=== PATIENT | male | born 1970 | race Caucasian/White ===

== ENCOUNTER 2019-08-30 09:19 | Emergency (ER) | payer SELFPAY ==
[2019-08-30 10:15] LABS: APPEARANCE,URINE CLEAR; BILIRUBIN,URINE NEGATIVE (NEGATIVE); COLOR,URINE YELLOW; GLUCOSE, URINE NEGATIVE (NEGATIVE); KETONES,URINE NEGATIVE (NEGATIVE); LEUKOCYTE ESTERASE,URINE NEGATIVE (NEGATIVE); NITRITE,URINE NEGATIVE (NEGATIVE); PROTEIN,URINE NEGATIVE (NEGATIVE); URINE SPECIFIC GRAVITY 1.013; UROBILINOGEN,URINE NEGATIVE mg/dL (<2.0)
[2019-08-30 10:26] LABS: ADD MANUAL MICROSCOPIC YES
[2019-08-30 10:29] LABS: BACTERIA,URINE 1+ /HPF
[2019-08-30 10:52] VITALS: BP 145/86
[2019-08-30] MEDS ORDERED: DOXYCYCLINE HYCLATE 100 MG TABLET PO ONE (10:57)
--- NOTE | 2019-08-30 11:01 | ER Document Report ---
ED GI/ - General Chief Complaint: Pain With Urination Stated Complaint: STD EXPOSURE Time Seen by Provider: 08/30/19 10:57 Primary Care Provider: JASPER FITCH [NO CURTIS MD] - Follow up as needed Mode of Arrival: Ambulatory Information source: Patient Notes: 49-year-old male presented to ED for pain and burning with urination. He states he has no vaginal discharge. He states he was treated on Wednesday for STDs with azithromycin and is Rocephin injection. He states he is always in the past got doxycycline as well. He states that the pain got better for a little while and it came back. He is alert oriented respirations regular and unlabored speaking in full sentences. - HPI Patient complains to provider of: Other - Pain and burning with urination Onset: Other - Couple days Timing/Duration: Gradual, Intermittent Quality of pain: Burning Severity at maximum: Moderate Severity in ED: None Pain Level: Denies Associated symptoms: Other - Pain and burning with urination Exacerbated by: Other Relieved by: Denies - Pain and burning with urination Similar symptoms previously: Yes Recently seen / treated by doctor: Yes - Related Data Allergies/Adverse Reactions: No Known Allergies Allergy (Verified 08/30/19 09:31) Past Medical History - General Information source: Patient - Social History Smoking Status: Never Smoker Chew tobacco use (# tins/day): No Frequency of alcohol use: None Drug Abuse: None 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 Family History: Reviewed & Not Pertinent Patient has homicidal ideation: No - Past Medical History Cardiac Medical History: Reports: Hx Hypertension Pulmonary Medical History: Reports: None EENT Medical History: Reports: None Neurological Medical History: Reports: None Endocrine Medical History: Reports: None Renal/ Medical History: Reports: None Malignancy Medical History: Reports None GI Medical History: Reports: None Musculoskeletal Medical History: Reports Hx Arthritis, Reports Hx Musculoskeletal Deformity, Reports Hx Musculoskeletal Trauma Skin Medical History: Reports None Psychiatric Medical History: Reports: None Traumatic Medical History: Reports: Hx Fractures, Hx Spine Fracture Past Surgical History: Reports: Hx Orthopedic Surgery - Immunizations Immunizations up to date: Yes Review of Systems - Review of Systems Constitutional: No symptoms reported EENT: No symptoms reported Cardiovascular: No symptoms reported Respiratory: No symptoms reported Gastrointestinal: No symptoms reported Genitourinary: Burning - Burning with urination Male Genitourinary: No symptoms reported Musculoskeletal: No symptoms reported Skin: No symptoms reported Hematologic/Lymphatic: No symptoms reported Neurological/Psychological: No symptoms reported Physical Exam - Vital signs Vitals: Temp Pulse Resp BP Pulse Ox 97.8 F 72 16 160/99 H 100 08/30/19 09:23 08/30/19 09:23 08/30/19 09:23 08/30/19 09:23 08/30/19 09:23 Interpretation: Normal - General General appearance: Appears well, Alert - HEENT Head: Normocephalic, Atraumatic Eyes: Normal Pupils: PERRL - Respiratory Respiratory status: No respiratory distress Chest status: Nontender Breath sounds: Normal Chest palpation: Normal - Cardiovascular Rhythm: Regular Heart sounds: Normal auscultation Murmur: No - Abdominal Inspection: Normal Distension: No distension Bowel sounds: Normal Tenderness: Nontender Organomegaly: No organomegaly - Back Back: Normal, Nontender - Extremities General upper extremity: Normal inspection, Nontender, Normal color, Normal ROM, Normal temperature General lower extremity: Normal inspection, Nontender, Normal color, Normal ROM, Normal temperature, Normal weight bearing. No: Landy's sign - Neurological Neuro grossly intact: Yes Cognition: Normal Orientation: AAOx4 [place] Coma Scale Eye Opening: Spontaneous [place] Coma Scale Verbal: Oriented [place] Coma Scale Motor: Obeys Commands [place] Coma Scale Total: 15 Speech: Normal Motor strength normal: LUE, RUE, LLE, RLE Sensory: Normal - Psychological Associated symptoms: Normal affect, Normal mood - Skin Skin Temperature: Warm Skin Moisture: Dry Skin Color: Normal Course - Vital Signs Vital signs: Temp Pulse Resp BP Pulse Ox 97.6 F 64 18 145/86 H 100 08/30/19 10:51 08/30/19 10:51 08/30/19 10:51 08/30/19 10:51 08/30/19 10:51 Discharge - Discharge Clinical Impression: Dysuria Condition: Stable Disposition: HOME, SELF-CARE Additional Instructions: You were seen today for the continued discomfort with urination. You state you were treated for STDs with azithromycin and Rocephin recently but they did not give you the weeklong pills that you normally take. You stated that the symptoms got better but came right back. I am giving you a weeklong's prescription of doxycycline. This is usually the medicine that you take with that. If this does not clear your problem you will need to follow-up with a urologist. Doxycycline Doxycycline (Vibramycin, Doryx) is an antibiotic of the tetracycline family. This type of drug is useful for infections of the respiratory tract and genital tract, and is sometimes used for intestinal infections. Unlike most tetracyclines, doxycycline can be taken with food. It is longer acting, and (usually) less prone to side effects than regular tetracycline. Tetracycline antibiotics can stain immature teeth and SHOULD NOT BE TAKEN BY CHILDREN, NURSING MOTHERS, OR WOMEN. Tetracyclines can make you more prone to sunburn. Abdominal cramping, nausea, and diarrhea are occasional side effects. Women may experience vaginal yeast infections. Call the doctor at once if you develop hives, itching, shortness of breath, or lightheadedness. FOLLOW-UP CARE: If you have been referred to a physician for follow-up care, call the physicians office for an appointment as you were instructed or within the next two days. If you experience worsening or a significant change in your symptoms, notify the physician immediately or return to the Emergency Department at any time for re-evaluation. Prescriptions: Doxycycline Monohydrate 100 mg PO BID #20 capsule Referrals: LOCAL,NO [NO LOCAL MD] - Follow up as needed
== END 2019-08-30 11:04 | disposition home or self-care (01) ==
LOC: ER 09:19
DX: R30.0 Dysuria (principal); I10 Essential (primary) hypertension
CPT/HCPCS: 81001; 99283